=== PATIENT | male | born 1975 | race Caucasian/White ===

== ENCOUNTER 2018-12-07 14:29 | Observation (INO) ==
--- NOTE | 2018-12-07 14:46 | Emergency Department Note ---
Disposition Clinical Impression: Chest pain Disposition: Admitted As Inpatient Condition: Fair General Adult HPI - General Chief complaint: ED Chest Pain Stated complaint: Chest Pain Time Seen by Provider: 12/07/18 14:38 Source: patient Limitations: no limitations - History of Present Illness Pain Scale: 8 - Related Data Previous Rx's Medication Instructions Recorded Nicotine [Nicotine Patch] 1 each TD DAILY 24 Days #24 12/08/18 patch.td24 RX: Lisinopril [Zestril] 5 mg PO DAILY #30 tablet 12/08/18 Allergies Allergy/AdvReac Type Severity Reaction Status Date / Time No Known Allergies Allergy Verified 10/11/18 13:12 Past Medical History - Past Medical History Medical history: Reports: no medical history Psychiatric history: Reports: no psych history - Social History Smoking Status: Current every day smoker Smokeless Tobacco Status: No Alcohol use: Reports: occasionally Drug use: Reports: none Physical Exam - General Limitations: no limitations General appearance: alert, in no apparent distress Course Vital Signs Temperature 97.5 F L 12/07/18 14:32 Pulse Rate 101 12/07/18 14:32 Respiratory Rate 16 12/07/18 14:32 Blood Pressure 183/121 12/07/18 14:32 O2 Sat by Pulse Oximetry 96 12/07/18 14:32 Temperature 97.6 F 12/08/18 10:09 Pulse Rate 64 12/08/18 13:20 Respiratory Rate 16 12/08/18 13:20 Blood Pressure 148/94 12/08/18 13:20 O2 Sat by Pulse Oximetry 98 12/08/18 13:20 Oxygen Delivery Oxygen Delivery Room Air Medical Decision Making - Lab Data Result diagrams: 12/08/18 03:00 12/08/18 03:00 Lab Results 12/07/18 12/07/18 12/07/18 Range/Units 15:20 15:20 15:20 WBC 14.7 H (4.3-11.1) K/mcL RBC 4.95 (4.19-5.50) M/mcL Hgb 16.0 (12.9-16.9) g/dL Hct 46.9 (37.5-50.1) % MCV 94.7 (83.0-100.0) fL MCH 32.3 (28.0-33.3) pg MCHC 34.1 (31.6-35.5) g/dL RDW 12.7 (11.5-14.5) % Plt Count 277 (140-400) K/mcL MPV 9.4 (9.4-12.4) fL Immature Gran % 0.5 (0-4) % Seg Neutrophils % 70.5 % Lymphocytes % 19.7 % Monocytes % 6.8 % Eosinophils % 2.0 % Basophils % 0.5 % Neutrophils # 10.4 H (1.6-8.9) K/mcL Lymphocytes # 2.9 (0.6-4.6) K/mcL Monocytes # 1.0 (0.0-1.3) K/mcL Eosinophils # 0.3 (0.0-0.6) K/mcL Basophils # 0.1 (0.0-0.2) K/mcL D-Dimer < 215 (0-500) ng/mLFEU Sodium 139 (136-145) mEq/L Potassium 4.2 (3.5-5.1) mEq/L Chloride 104 (98-107) mEq/L Carbon Dioxide 26 (23-29) mEq/L BUN 12 (6-20) mg/dL Creatinine 0.85 (0.70-1.30) mg/dL Est GFR ( Amer) > 60 (> 60) Est GFR (Non-Af Amer) > 60 (> 60) BUN/Creatinine Ratio 14 (6-26) Glucose 127 H (70-105) mg/dL Calculated Osmolality 289 (280-300) Calcium 9.4 (8.6-10.3) mg/dL Total Bilirubin 0.4 (0.3-1.0) mg/dL AST 17 (13-39) Units/L ALT 19 (7-52) Units/L Alkaline Phosphatase 92 (34-104) Units/L Troponin I < 0.03 (< 0.04) ng/mL Serum Total Protein 7.3 (6.4-8.9) g/dL Albumin 4.3 (3.5-5.7) g/dL Globulin 3.0 (2.4-3.5) g/dL Albumin/Globulin Ratio 1.4 (1.1-2.2) Attestation Statement - Attestation Attestation: I examined this patient and my medical decision-making was reviewed with the Resident Physician. I agree with the documented findings, disposition and treatment plan as described except to the extent set forth below. [id number] time provided Patient arrives complaining of chest discomfort. He does not appear in any acute distress upon arrival. The patient was evaluated in conjunction with the resident physician Dr. Valdez
--- NOTE | 2018-12-07 15:13 | Emergency Department Note ---
Disposition Clinical Impression: Chest pain Qualifiers: Chest pain type: unspecified Qualified Code(s): R07.9 - Chest pain, unspecified Disposition: Admitted As Inpatient Condition: Fair Referrals: NONE,PCP [Primary Care Provider] - Forms: ED Satisfaction Letter Time of Disposition: 17:01 Chest Pain HPI - General Chief Complaint: ED Chest Pain Stated Complaint: Chest Pain Time Seen by Provider: 12/07/18 14:38 Source: patient Mode of arrival: ambulatory Limitations: no limitations Vital Signs Reviewed: Yes Nursing Notes Reviewed: Yes - History of Present Illness HPI Narrative: Patient presenting to the ED with the chief complaint of chest pain. States that been going on for about 48 hours. Starts in his central to left chest and radiates through to his left scapula and down his left arm at times. It is significantly worse with exertion and better with rest. No associated lightheadedness or dizziness. No nausea, vomiting or diaphoresis. No previous history of coronary disease. It does have hypertension and does smoke. His father had a heart attack in his 40s. He denies any associated abdominal pain. No history of DVT or PE. No history of malignancy. Severity scale (1-10): 8 - Related Data Previous Rx's Medication Instructions Recorded Amoxicillin 875 mg PO BID #20 tablet 10/11/18 Benzonatate [Tessalon] 200 mg PO TID PRN #20 capsule 10/11/18 Loperamide HCl [Imodium A-D] 2 mg PO ONCE PRN #6 tablet 10/11/18 Omeprazole 20 mg PO DAILY #7 tablet. 10/11/18 Ondansetron ODT [Zofran ODT] 4 mg SL Q6HR PRN #10 tab.rapdis 10/11/18 Allergies Allergy/AdvReac Type Severity Reaction Status Date / Time No Known Allergies Allergy Verified 10/11/18 13:12 Review of Systems: As reviewed in the HPI. All other systems reviewed are negative or normal. Chest Pain PMH - Past Medical History Medical history: Reports: no medical history Psychiatric history: Reports: no psych history - Social History Smoking Status: Current every day smoker Alcohol use: Reports: occasionally Drug use: Reports: none Physical Exam CONSTITUTIONAL: [well appearing, alert and in no acute distress] EYES: [EOMI, clear conjunctiva, PERRLA] HENT: [Normocephalic, atraumatic, moist mucus membranes, normal oropharynx] NECK: [normal inspection, full ROM, trachea midline, no obvious swelling] PULMONARY: [normal lung sounds bilaterally, normal chest rise and fall, no respiratory distress or stridor, no wheezes, no rales, no rhonchi CARDIOVASCULAR: [regular rate, regular rhythm, normal heart sounds, no murmurs, distal extremities are warm and well perfused] GASTROINSTESTINAL: [soft, non-tender, non-rigid, non-distended, no guarding, no rebound, normal bowel sounds] GENITOURINARY/RECTAL: [deferred] NEUROLOGIC: [Alert, oriented x3, normal speech, moves all extremities] EXTREMITIES: [Normal inspection, full ROM, no tenderness, no pedal edema, normal capillary refill] MUSCULOSKELETAL: [no gross deformities, atraumatic] SKIN: [No cyanosis, no diaphoresis, normal color, warm, no rash] PSYCHIATRIC: [normal mood and affect] - General Limitations: no limitations General appearance: alert, in no apparent distress Course Course Narrative: Patient presenting with very concerning symptoms for ACS. We will get labs, EKG, chest x-ray and admit Vital Signs Temperature 97.5 F L 12/07/18 14:32 Pulse Rate 101 12/07/18 14:32 Respiratory Rate 16 12/07/18 14:32 Blood Pressure 183/121 12/07/18 14:32 O2 Sat by Pulse Oximetry 96 12/07/18 14:32 Temperature 97.5 F L 12/07/18 14:32 Pulse Rate 101 12/07/18 14:32 Respiratory Rate 16 12/07/18 14:32 Blood Pressure 183/121 12/07/18 14:32 O2 Sat by Pulse Oximetry 96 12/07/18 14:32 Oxygen Delivery Oxygen Delivery Room Air Chest Pain - Medical Records Medical records reviewed: Yes I reviewed the patient's medical records. - Lab Data Lab results reviewed: Yes I reviewed the patient's lab results. Result diagrams: 12/07/18 15:20 12/07/18 15:20 Lab Results 12/07/18 12/07/18 12/07/18 Range/Units 15:20 15:20 15:20 WBC 14.7 H (4.3-11.1) K/mcL RBC 4.95 (4.19-5.50) M/mcL Hgb 16.0 (12.9-16.9) g/dL Hct 46.9 (37.5-50.1) % MCV 94.7 (83.0-100.0) fL MCH 32.3 (28.0-33.3) pg MCHC 34.1 (31.6-35.5) g/dL RDW 12.7 (11.5-14.5) % Plt Count 277 (140-400) K/mcL MPV 9.4 (9.4-12.4) fL Immature Gran % 0.5 (0-4) % Seg Neutrophils % 70.5 % Lymphocytes % 19.7 % Monocytes % 6.8 % Eosinophils % 2.0 % Basophils % 0.5 % Neutrophils # 10.4 H (1.6-8.9) K/mcL Lymphocytes # 2.9 (0.6-4.6) K/mcL Monocytes # 1.0 (0.0-1.3) K/mcL Eosinophils # 0.3 (0.0-0.6) K/mcL Basophils # 0.1 (0.0-0.2) K/mcL D-Dimer < 215 (0-500) ng/mLFEU Sodium 139 (136-145) mEq/L Potassium 4.2 (3.5-5.1) mEq/L Chloride 104 (98-107) mEq/L Carbon Dioxide 26 (23-29) mEq/L BUN 12 (6-20) mg/dL Creatinine 0.85 (0.70-1.30) mg/dL Est GFR ( Amer) > 60 (> 60) Est GFR (Non-Af Amer) > 60 (> 60) BUN/Creatinine Ratio 14 (6-26) Glucose 127 H (70-105) mg/dL Calculated Osmolality 289 (280-300) Calcium 9.4 (8.6-10.3) mg/dL Total Bilirubin 0.4 (0.3-1.0) mg/dL AST 17 (13-39) Units/L ALT 19 (7-52) Units/L Alkaline Phosphatase 92 (34-104) Units/L Troponin I < 0.03 (< 0.04) ng/mL Serum Total Protein 7.3 (6.4-8.9) g/dL Albumin 4.3 (3.5-5.7) g/dL Globulin 3.0 (2.4-3.5) g/dL Albumin/Globulin Ratio 1.4 (1.1-2.2) - Radiology Data Radiology results reviewed: Yes I reviewed the patient's radiology results. - EKG Data EKG attestation: Yes I reviewed and interpreted this EKG. EKG results narrative: Sinus rhythm, rate 95, normal axis, no ischemic change Heart Score - Score History: Highly Suspicious EKG: Normal Age: Less than 45 Risk Factors: Equal/Greater than 3 risk factor or history of atherosclerotic disease Troponin: Less than normal limit HEART Score Total: 4
[2018-12-07 15:37] LABS: Basophils # 0.1 K/mcL (0.0-0.2); Basophils % 0.5 %; Eosinophils # 0.3 K/mcL (0.0-0.6); Hematocrit 46.9 % (37.5-50.1); Immature Granulocytes % 0.5 % (0-4); Lymphocytes # 2.9 K/mcL (0.6-4.6); Lymphocytes % 19.7 %; Mean Corpuscular HGB Conc 34.1 g/dL (31.6-35.5); Mean Corpuscular Hemoglobin 32.3 pg (28.0-33.3); Mean Corpuscular Volume 94.7 fL (83.0-100.0); Mean Platelet Volume 9.4 fL (9.4-12.4); Monocytes % 6.8 %; Neutrophils # 10.4 K/mcL (1.6-8.9); Platelet Count 277 K/mcL (140-400); Red Blood Count 4.95 M/mcL (4.19-5.50); Red Cell Distribution Width 12.7 % (11.5-14.5); Segmented Neutrophils % 70.5 %
[2018-12-07 15:55] LABS: Alanine Aminotransferase 19 Units/L (7-52); Albumin 4.3 g/dL (3.5-5.7); Albumin/Globulin Ratio 1.4 (1.1-2.2); Alkaline Phosphatase 92 Units/L (34-104); Aspartate Amino Transferase 17 Units/L (13-39); BUN/Creatinine Ratio 14 (6-26); Bilirubin,Total 0.4 mg/dL (0.3-1.0); Blood Urea Nitrogen 12 mg/dL (6-20); Calcium 9.4 mg/dL (8.6-10.3); Carbon Dioxide 26 mEq/L (23-29); Chloride 104 mEq/L (98-107); Glucose 127 mg/dL (70-105); Osmolality,Calculated 289 (280-300); Potassium 4.2 mEq/L (3.5-5.1); Sodium 139 mEq/L (136-145); Total Protein 7.3 g/dL (6.4-8.9); eGFR For Non-African Americans > 60 (> 60)
[2018-12-07] MEDS ORDERED: Aspirin 81 MG TAB.CHEW PO ONE (16:39)
[2018-12-07 16:57] LABS: Troponin I < 0.03 ng/mL (< 0.04)
[2018-12-07] MEDS ORDERED: Ondansetron ODT 4 MG TAB.RAPDIS SL PRN (17:28)
[2018-12-07] MEDS ORDERED: Naloxone 0.4 MG/ML INJ IVP PRN (17:28)
[2018-12-07] MEDS ORDERED: Acetaminophen 325 MG TABLET PO PRN (17:28)
[2018-12-07] MEDS ORDERED: *HR* HYDROcodone/Acet 5/325 mg TABLET PO PRN (17:28)
--- NOTE | 2018-12-07 18:09 | Internal Med History&Physical ---
Date of Encounter: 12/07/18 Time of Encounter: 18:04 Internal Medicine - H&P: HPI Chief complaint: CP Admitted From: Emergency Dept Plans for Post Hospital Care: Home History of present illness: Mr. Al is a 43 year old male significant past medical history except patient does smoke and drinks beer approximately 3 times a week-patient states that he has been experiencing midsternal chest pressure that radiates to his left scapula and left arms. Patient states that pain is significantly worse with exertion and relieved with rest. Patient states her pain has been ongoing off and on since Friday. Denies any and associated symptoms of diaphoresis lightheadedness or dizziness. He does become short of breath during these episodes. He presented to [facility] ED with the above complaints. Patient states he does not have a past history of coronary artery disease he does have some hypertension at this time however he denies any past history of hypertension this may be undiagnosed since patient states he has not been to a physician in some time. Operative reveal elevated white count chemistry unremarkable trop onin negative EKG with no ST-T wave abnormalities chest x-ray with no acute process. Patient was admitted for further workup and evaluation. Currently patient denies any chest pain and he is hemodynamically stable this time. Past Med Surg Social Fam HX - Past Medical History Medical history: no medical history Psychiatric history: no psych history - Social History Smoking Status: Current every day smoker Smokeless Tobacco Status: No Alcohol use: occasionally Drug use: none - Family History Father Living Status: Still Living Hx Family Cardiac Disorders: Yes (History of ID with stents first ID occurring in his 40s) Internal Medicine - H&P: Meds Amoxicillin 875 mg PO BID #20 tablet 10/11/18 [Rx] Benzonatate [Tessalon] 200 mg PO TID PRN #20 capsule 10/11/18 [Rx] Loperamide HCl [Imodium A-D] 2 mg PO ONCE PRN #6 tablet 10/11/18 [Rx] Omeprazole 20 mg PO DAILY #7 tablet. 10/11/18 [Rx] Ondansetron ODT [Zofran ODT] 4 mg SL Q6HR PRN #10 tab.rapdis 10/11/18 [Rx] Allergy/AdvReac Type Severity Reaction Status Date / Time No Known Allergies Allergy Verified 10/11/18 13:12 All Systems PM: A 10-system review of systems was performed and is negative for pertinent findings except as documented above in the HPI. - Constitutional Constitutional: no chills, no fever(s), no night sweats - EENT Eyes: no change in vision, no discharge, no pain, no photophobia Ears: no ear discharge, no ear pain, no tinnitus Nose, mouth and throat: no dysphagia, no nasal discharge, no neck pain, no sore throat - Cardiovascular Cardiovascular ROS IM: chest pain, no diaphoresis, no dyspnea, no lightheadedness, no palpitations, no syncope - Respiratory Respiratory: dyspnea on exertion - Gastrointestinal Gastrointestinal: no abdominal pain, no diarrhea, no hematemesis, no h ematochezia, no melena, no nausea, no vomiting - Musculoskeletal Musculoskeletal ROS IM: no numbness, no tingling - Integumentary Integumentary IM: no rash, no unusual bruising - Neurological Neurological ROS: no confusion, no convulsions, no focal weakness, no numbness, no tingling, no tremor(s) - Hematologic/Lymphatic Hematologic/Lymphatic: no easy bruising - Constitutional Vitals: Temp Pulse Resp BP Pulse Ox 97.5 F L 81 14 144/100 94 12/07/18 14:32 12/07/18 17:09 12/07/18 17:09 12/07/18 17:09 12/07/18 17:09 Exam: Skin: Free of rash and discoloration. Eyes: Sclera is white. There is no discharge from eyes. ENMT: Oral/pharyngeal mucosa is normal in appearance. There is no discharge from nose or ears. Respiratory: Normal breath sounds with no crackles and wheezes bilaterally. CV: Heart is regular with no gallop or murmur. GI: Abdomen is flat and soft with no palpable mass or visceromegaly. : There is no tenderness in patient's flanks bilaterally. Neuro exam: He has good strength in upper and lower extremities. He has normal eye movements. Psychiatric: He has normal affect. His thought process is appropriate to the situation. Internal Med - H&P Results - Labs CBC & Chem 7: 12/07/18 15:20 12/07/18 15:20 Labs: Short CBC 12/07/18 Range/Units 15:20 WBC 14.7 H (4.3-11.1) K/mcL Hgb 16.0 (12.9-16.9) g/dL Hct 46.9 (37.5-50.1) % Plt Count 277 (140-400) K/mcL Neutrophils # 10.4 H (1.6-8.9) K/mcL BMP 12/07/18 15:20 Sodium 139 Potassium 4.2 Chloride 104 Carbon Dioxide 26 BUN 12 Creatinine 0.85 Glucose 127 H Calcium 9.4 Cardiac Enzymes 12/07/18 Range/Units 15:20 Troponin I < 0.03 (< 0.04) ng/mL Liver Function 12/07/18 Range/Units 15:20 Total Bilirubin 0.4 (0.3-1.0) mg/dL AST 17 (13-39) Units/L ALT 19 (7-52) Units/L Alkaline Phosphatase 92 (34-104) Units/L Albumin 4.3 (3.5-5.7) g/dL - EKG Data Interpretation IM: normal EKG - Impressions ITS Impressions Chest X-Ray 12/07/18 15:00 IMPRESSION: No acute process. D/ / Ross Holland MD / Ross Holland MD Interpreting Provider: Ross Holland MD - Diagnostic Studies Chest x-ray Additional comments: Chest X-Ray 12/07/18 15:00 IMPRESSION: No acute process. D/ / Ross Holland MD / Ross Holland MD Interpreting Provider: Ross Holland MD - Assessment and Plan (1) Chest pain Current Visit: Yes Status: Acute Assessment and plan: HL has been experiencing chest pain during exertion describing as a sharp sharp radiating to left arm associated symptoms of shortness of breath relieved with rest. Off and on since Friday. Risk factors include obesity smoker hypertension family history. Initial troponin was negative we will continue to trend troponins Cardiac echo Continuous cardiac monitoring Check lipid profile in a.m. Nitroglycerin for chest pain Aspirin we will start low-dose beta bernabe Patient will be nothing by mouth after midnight undergo stress test in a.m. Consult cardiology as needed Qualifiers: Chest pain type: unspecified Qualified Code(s): R07.9 - Chest pain, unspecified (2) HTN (hypertension) Current Visit: Yes Status: Acute Assessment and plan: 1 patient has elevated blood pressure on presentation I suspect this is undiagnosed patient states he has not seen a physician in some time. We will initiate patient on a low-dose beta bernabe Qualifiers: Hypertension type: unspecified Qualified Code(s): I10 - Essential (primary) hypertension (3) Tobacco abuse Current Visit: Yes Status: Acute Assessment and plan: Patient smokes 2 packs a day for approximately 25 years. Encouraged patient to stop smoking (4) EtOH dependence Current Visit: Yes Status: Acute Assessment and plan: She states he drinks approximately 3 times a week approximately a 12 pack 3 times a week. Patient states his last drink was yesterday We will monitor for any withdrawal CIWA Qualifiers: Substance use status: uncomplicated Qualified Code(s): F10.20 - Alcohol dependence, uncomplicated (5) DVT prophylaxis Current Visit: Yes Status: Acute Assessment and plan: Patient is ambulatory - Time Spent With Patient Total time spent is greater than 50% in coordination of care (as documented) at patient's floor/unit and/or counseling patient:
[2018-12-07] MEDS ORDERED: *HR* LORazepam 2 MG/ML VIAL IVP PRN ×3 (18:29)
[2018-12-07] MEDS ORDERED: Perflutren Lipid Microsphere 1.3 ML in 0.9 % Sodium Chloride 8.7 ML IVP ONE (19:56)
[2018-12-07] MEDS ORDERED: Nicotine 14 MG PATCH.TD24 TD SCH (20:15)
[2018-12-08 03:16] LABS: Basophils # 0.1 K/mcL (0.0-0.2); Basophils % 0.8 %; Eosinophils # 0.4 K/mcL (0.0-0.6); Eosinophils % 3.2 %; Hematocrit 47.5 % (37.5-50.1); Hemoglobin 16.2 g/dL (12.9-16.9); Immature Granulocytes % 0.3 % (0-4); Lymphocytes % 31.1 %; Mean Corpuscular HGB Conc 34.1 g/dL (31.6-35.5); Mean Corpuscular Hemoglobin 32.6 pg (28.0-33.3); Mean Corpuscular Volume 95.6 fL (83.0-100.0); Mean Platelet Volume 9.3 fL (9.4-12.4); Monocytes % 7.8 %; Neutrophils # 7.3 K/mcL (1.6-8.9); Platelet Count 265 K/mcL (140-400); Red Blood Count 4.97 M/mcL (4.19-5.50); Red Cell Distribution Width 12.7 % (11.5-14.5); Segmented Neutrophils % 56.8 %
[2018-12-08 03:33] LABS: BUN/Creatinine Ratio 17 (6-26); Blood Urea Nitrogen 14 mg/dL (6-20); Calcium 9.1 mg/dL (8.6-10.3); Carbon Dioxide 27 mEq/L (23-29); Chloride 102 mEq/L (98-107); Cholesterol 203 mg/dL (< 200); Glucose 91 mg/dL (70-105); HDL Cholesterol 51 mg/dL (40-59); LDL Cholesterol,Calculated 130 mg/dL (0-99); Osmolality,Calculated 282 (280-300); Potassium 3.9 mEq/L (3.5-5.1); Sodium 136 mEq/L (136-145); Triglycerides 108 mg/dL (< 150); eGFR For Non-African Americans > 60 (> 60)
[2018-12-08] MEDS ORDERED: Regadenoson 0.4 MG/5 ML SYRINGE IVP ONE ×2 (08:13→08:23)
[2018-12-08] MEDS ORDERED: Folic Acid 1 MG TABLET PO SCH (09:00)
[2018-12-08] MEDS ORDERED: Vitamin B Complex/Vit C/Vit E 1 EACH TABLET PO SCH (09:00)
[2018-12-08] MEDS ORDERED: Aspirin 81 MG TAB.CHEW PO SCH (09:00)
[2018-12-08] MEDS ORDERED: Thiamine (B-1) 100 MG TABLET PO SCH (09:00)
--- NOTE | 2018-12-08 13:16 | Discharge Summary ---
- NOTES TO OUTPATIENT PROVIDER Notes to Outpatient Provider: Stress test which was negative for any ischemia or infarct- echo after 60-65% troponin is negative 3 did have high blood pressure initiated on lisinopril will need to monitor as outpatient. Encouraged smoking cessation given a prescription for nicotine patch Orders not resulted at time of discharge: Pending orders 12/07/18 18:03 NM davin perf SPECT multi [NM] Routine 12/08/18 06:00 ECG 12 lead ECG [ECG] AM 0600 12/08/18 12:55 Drug Screen, Urine [UCHEM] Routine Date of Encounter: 12/08/18 Time of Encounter: 13:04 - Discharge Diagnosis (1) Chest pain Priority: Primary Status: Acute Qualifiers: Chest pain type: unspecified Qualified Code(s): R07.9 - Chest pain, unspecified (2) HTN (hypertension) Priority: Secondary Status: Acute Qualifiers: Hypertension type: unspecified Qualified Code(s): I10 - Essential (primary) hypertension (3) Tobacco abuse Priority: Secondary Status: Acute (4) EtOH dependence Priority: Secondary Status: Acute Qualifiers: Substance use status: uncomplicated Qualified Code(s): F10.20 - Alcohol dependence, uncomplicated Hospital course: Mr. Al is a 43 year old male past medical history of to pack-a-day smoking as well as alcohol use 12 pack 3 times a week-resented to [facility] with complaints of midsternal chest pain radiating to his left scapula and left arms occurring off and on during exertion and relieved with rest. Troponins were negative [address]-T wave abnormalities. Underwent cardiac stress test which was negative for any ischemia or infarct-cardiac [place] EF [place] 6065% normal LV chamber size normal right ventricular structure and function normal significant valvular dysfunction no evidence of pulmonary hypertension. Patient did have elevated blood pressure during admission initiated on lisinopril. Advised patient to follow-up with primary care provider and to keep a blood pressure log. Encouraged patient to stop smoking requesting prescription for nicotine patch. Patient will follow-up with primary care provider in one week verbalized understanding. We will give patient prescription for lisinopril and nicotine patch. Patient is chest pain-free and ready for discharge. - Time Spent with Patient Total time spent providing and/or coordinating discharge services: - Discharge Medications Prescriptions: New Lisinopril [Zestril] 5 mg PO DAILY #30 tablet Nicotine [Nicotine Patch] 1 each TD DAILY 24 Days #24 patch.td24 Home Medications: Lisinopril [Zestril] 5 mg PO DAILY #30 tablet 12/08/18 [Rx] Nicotine [Nicotine Patch] 1 each TD DAILY 24 Days #24 patch.td24 12/08/18 [Rx] Allergies/Adverse Reactions: Allergy/AdvReac Type Severity Reaction Status Date / Time No Known Allergies Allergy Verified 10/11/18 13:12 Date of admission: 12/07/18 17:21 Primary care physician: PCP NONE Discharging clinician: Catherine Pollard Anticipated date of discharge: 12/08/18 - Constitutional Vitals: Temp Pulse Resp BP Pulse Ox 97.6 F 67 18 147/97 96 12/08/18 10:09 12/08/18 10:09 12/08/18 10:09 12/08/18 10:09 12/08/18 10:09 Exam: Skin: Free of rash and discoloration. Eyes: Sclera is white. There is no discharge from eyes. ENMT: Oral/pharyngeal mucosa is normal in appearance. There is no discharge from nose or ears. Respiratory: Normal breath sounds with no crackles and wheezes bilaterally. CV: Heart is regular with no gallop or murmur. GI: Abdomen is flat and soft with no palpable mass or visceromegaly. : There is no tenderness in patient's flanks bilaterally. Neuro exam: He has good strength in upper and lower extremities. He has normal eye movements. Psychiatric: He has normal affect. His thought process is appropriate to the situation. - Patient Status Disposition: Home, Self-Care Condition: Fair Functional capacity at discharge: independent ambulation Overall status at discharge: patient is back to baseline - Discharge Instructions Instructions: How to Stop Smoking (DC), Low Fat Diet (DC), Chronic Hypertension (DC), Low Sodium Diet (DC) Follow Up With: Amol Pitts DO [Partnered Physician] - (Web Request sent after no answer from physician office. ) Forms: Inpatient Work/School Release Additional Instructions: Check blood pressure every day and keep a log - Diet and Activity Activity: increase activity as tolerated Diet: low fat, low cholesterol, low salt diet
[2018-12-08 13:18] LABS: Amphetamine Screen,Urine Negative ng/mL (Cutoff=1000); Barbiturate Screen,Urine Negative ng/mL (Cutoff=200); Benzodiazepines Screen,Urine Negative ng/mL (Cutoff=200); Cannabinoid Screen,Urine Negative ng/mL (Cutoff = 50); Cocaine Screen,Urine Negative ng/mL (Cutoff= 300); Opiate Screen,Urine Negative ng/mL (Cutoff=300); Phencyclidine Screen,Urine Negative ng/mL (Cutoff=25)
[2018-12-08 13:20] VITALS: BP 148/94
--- NOTE | 2018-12-10 16:26 | Electrocardiograph Report ---
[place] [id number] Test Date: 2018-12-07 Pat Name: Mike Al Department: EXAM7 Room: 2S3 Gender: M Clinic Specialist: : 1975 Requested By: Flako Huntley Order Number: [id number] Reading MD: José Miguel Bain Measurements Intervals [place] Rate: 95 P: 91 MT: 152 QRS: 93 QRSD: 76 T: 8 QT: 333 QTc: 419 Interpretive Statements Sinus rhythm Borderline right axis deviation Electronically Signed On 12-10-2018 16:25:09 EDT by José Miguel Bain
--- NOTE | 2018-12-11 05:02 | Electrocardiograph Report ---
[place] [address] Test Date: 2018-12-08 Pat Name: Mike Al Department: 103 Room: 2S3 Gender: M Road Worker: : 1975 Requested By: Catherine Pollard Order Number: [id number] Reading MD: Armando Robledo Measurements Intervals [place] Rate: 66 P: 59 NE: 152 QRS: 76 QRSD: 89 T: 61 QT: 387 QTc: 401 Interpretive Statements SINUS RHYTHM Electronically Signed On 12-11-2018 5:00:56 EDT by Armando Robledo
== END 2018-12-08 14:10 | disposition home or self-care (01) ==
LOC: EMEROOARM 14:29 → 2SOUTHHOLD 14:29
PROVIDERS: ADMIT Internal Medicine Nephrology; ATTEND Internal Medicine Nephrology